=== PATIENT | male | born 1970 | race African-American/Black ===

== ENCOUNTER 2018-08-24 10:04 | Outpatient (CLI) | payer BC ==
--- NOTE | 2018-08-24 11:58 | ULT ---
US Hepatic Doppler History: Hepatitis B Comparison: None. Findings: Real-time grayscale, color, and spectral analysis of the liver was performed. Visualized portion of the pancreas, aorta, and IVC are unremarkable. Mild coarsened hepatic echotextu re of liver measures 16.5 cm in length. No hepatic mass. Portal vein is patent with adequate pulsatility and directional flow. Right and left portal veins are patent with normal directional flow as well as the hepatic veins. Common bile duct measures 4 mm. The hepatic artery is patent with normal phasicity. Gallbladder is normal. Spleen measures 8.4 cm in length. Splenic vessels are patent. Impression: 1. Coarsened hepatic echotexture suggesting hepatocellular disease. 2. No hepatic mass. 3. Normal directional flow of the hepatic and splenic vessels.
== END 2018-08-24 10:05 | disposition home or self-care (01) ==
LOC: BICULT 10:04
PROVIDERS: ATTEND Internal Medicine
DX: B18.1 Chronic viral hepatitis B without delta-agent (principal); Z80.0 Family history of malignant neoplasm of digestive organs
CPT/HCPCS: 76705